=== PATIENT | male | born 1945 | race Caucasian/White ===

== ENCOUNTER 2021-09-26 20:06 | Observation (INO) | payer OTHER ==
[~2021-09-26] VITALS: Ht 182.9 cm; Wt 77.1 kg
[2021-09-26 20:33] LABS: HEMOGLOBIN 14.2 gm/dl (14.0-17.5); RED BLOOD COUNT 4.59 M/UL (4.20-5.50); WHITE BLOOD COUNT 8.8 K/UL (4.5-11.0)
[2021-09-26 20:57] LABS: BUN/CREATININE RATIO 19 (0-10)
[2021-09-27] MEDS ORDERED: LISINOPRIL20 MG PO (03:32)
[2021-09-28 02:59] LABS: HEMOGLOBIN 12.8 gm/dl (14.0-17.5); RED BLOOD COUNT 4.15 M/UL (4.20-5.50); WHITE BLOOD COUNT 8.5 K/UL (4.5-11.0)
[2021-09-28 03:22] LABS: BUN/CREATININE RATIO 20 (0-10)
== END 2021-09-28 13:47 | disposition home or self-care (01) ==
LOC: ER1 20:06 → MED SURG 4 09-27 01:45 → CDU 09-27 01:45 → MED SURG 4 09-27 03:14
PROVIDERS: Internal Medicine; Physician Assistant; ADMIT Internal Medicine
DX: R55 Syncope and collapse (principal); Z20.822 Contact with and (suspected) exposure to COVID-19; S06.0X9A Concussion with loss of consciousness of unspecified duration, initial encounter; S02.40FA Zygomatic fracture, left side, initial encounter for closed fracture; I10 Essential (primary) hypertension; K21.9 Gastro-esophageal reflux disease without esophagitis; E78.5 Hyperlipidemia, unspecified; W18.30XA Fall on same level, unspecified, initial encounter; Z79.899 Other long term (current) drug therapy
CPT/HCPCS: ECHO; 0240U; 12013; 36415; 70450; 70551; 71045; 72125; 80053; 80307; 81001; 82306; 82550; 82553; 82607; 82746; 83540; 83550; 83735; 83880; 84100; 84439; 84443; 84484; 85025; 85379; 85610; 85652; 85730; 86140; 87086; 93005; 93306; 93880; 96374; 96375; 97161; 97165; 99285; G0378; J0780; J2405; Q0177; Q9967